=== PATIENT | male | born 1990 | race African-American/Black ===

== ENCOUNTER → 2016-10-02 | Emergency (ER) | payer OTHER ==
[~2016-10-02] VITALS: Ht 162.6 cm; Wt 66.2 kg
[2016-10-02 14:27] VITALS: BP 143/71
== END | disposition left against medical advice (07) ==
LOC: M ED 19:21 → EDBD 19:21
DX: R68.89 Other general symptoms and signs (principal); Z53.21 Procedure and treatment not carried out due to patient leaving prior to being seen by health care provider

== ENCOUNTER 2017-12-20 14:50 | Emergency (ER) | payer OTHER ==
[2017-12-20] MEDS: LIDOCAINE 1% MDV 20ML VIAL IM (15:30)
[2017-12-20] MEDS: ADACEL/BOOSTRIX VACCINE (DIPHTH/PERTUSS/ACELL/TETANUS)0.5ML SYR (90715) IM (15:34)
== END 2017-12-20 16:28 | disposition home or self-care (01) ==
LOC: M ED 14:50
DX: S61.411A Laceration without foreign body of right hand, initial encounter (principal); W25.XXXA Contact with sharp glass, initial encounter; Y92.098 Other place in other non-institutional residence as the place of occurrence of the external cause; F17.200 Nicotine dependence, unspecified, uncomplicated
CPT/HCPCS: 90715

== ENCOUNTER 2018-11-04 11:30 | Emergency (ER) | payer OTHER ==
[~2018-11-04] VITALS: Ht 175.3 cm; Wt 69.1 kg
[2018-11-04] MEDS ORDERED: ASPIRIN 81 MG CHEW TABLET PO ONE (12:30)
[2018-11-04 13:00] LABS: BASO # 0.1 10^3/uL (0.0-0.2); BASO % 1.3 % (0.0-1.0); EOS # 0.2 10^3/uL (0.0-0.50); EOS % 3.5 % (0.0-3.0); HEMATOCRIT 48.7 % (42.0-52.0); HEMOGLOBIN 16.1 g/dl (13.5-17.5); LYMPH % 44.3 % (24.0-44.0); MEAN CORPUSCULAR HEMOGLOBIN 28.6 pg (27.0-33.0); MEAN CORPUSCULAR HGB CONC 33.1 g/dl (32.0-36.5); MEAN CORPUSCULAR VOLUME 86.5 fl (80.0-96.0); MONO # 0.4 10^3/uL (0.0-0.8); MONO % 9.1 % (0.0-5.0); NEUTROPHILS # 1.9 10^3/uL (1.8-7.7); NEUTROPHILS % 41.6 % (36.0-66.0); PLATELET COUNT, AUTOMATED 164 10^3/uL (150-450); RED BLOOD COUNT 5.63 10^6/uL (4.30-6.10); WHITE BLOOD COUNT 4.6 10^3/uL (4.0-10.0)
[2018-11-04 13:23] LABS: INR 1.04; PROTHROMBIN TIME 13.7 SECONDS (12.1-14.4)
[2018-11-04 13:54] LABS: ALBUMIN 4.3 GM/DL (3.2-5.2); ALT/SGPT 17 U/L (12-78); BILIRUBIN,DIRECT 0.3 MG/DL (0.0-0.2); BILIRUBIN,TOTAL 1.2 MG/DL (0.2-1.0); BLOOD UREA NITROGEN 12 MG/DL (7-18); CALCIUM LEVEL 8.9 MG/DL (8.5-10.1); CARBON DIOXIDE LEVEL 26 MEQ/L (21-32); CHLORIDE LEVEL 105 MEQ/L (98-107); CK-MB VALUE MASS < 1.0 NG/ML (<3.6); CPK CREATINE PHOSPHOKINASE 106 U/L (39-308); CREATININE FOR GFR 1.15 MG/DL (0.70-1.30); FREE T4 0.93 NG/DL (0.76-1.46); GLOMERULAR FILTRATION RATE > 60.0 (>60); GLUCOSE, FASTING 89 MG/DL (70-100); MB/CK RELATIVE INDEX 0.94 (< OR =4); POTASSIUM SERUM 4.1 MEQ/L (3.5-5.1); SODIUM LEVEL 139 MEQ/L (136-145); TOTAL PROTEIN 7.8 GM/DL (6.4-8.2); TROPONIN I < 0.02 NG/ML (< 0.10)
--- NOTE | 2018-11-04 14:09 | REP ---
CHEST, TWO VIEWS: There is no evidence of acute infiltrate. No pleural effusion is seen. The heart is normal in size. The mediastinal silhouette is unremarkable. The visualized osseous structures are intact. IMPRESSION: No acute pulmonary disease. Electronically Signed by Dileep Otero MD 11/05/2018 10:52 A
[2018-11-04 14:17] VITALS: BP 93/59
--- NOTE | 2018-11-04 22:17 | ECGEPIP ---
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
== END 2018-11-04 14:30 | disposition home or self-care (01) ==
LOC: M ED 11:30
DX: R07.89 Other chest pain (principal); R94.31 Abnormal electrocardiogram [ECG] [EKG]; F17.210 Nicotine dependence, cigarettes, uncomplicated; Z82.49 Family history of ischemic heart disease and other diseases of the circulatory system